=== PATIENT | female | born 1990 ===

== ENCOUNTER 2020-12-16 22:35 | Emergency (ER) | payer SELFPAY ==
[~2020-12-16] VITALS: Ht 154.9 cm; Wt 65.9 kg
[2020-12-16 22:50] VITALS: BP 120/69; Ht 154.9 cm; Wt 65.9 kg
[2020-12-16] MEDS ORDERED: PRENAVITE1 TAB PO (22:51)
[2020-12-16 23:31] LABS: BILIRUBIN NEGATIVE (NEGATIVE); KETONE MODERATE mg/dL (NEGATIVE); NITRITE NEGATIVE (NEGATIVE); UROBILINOGEN NORMAL mg/dL (< 2)
[2020-12-16 23:33] LABS: HEMATOCRIT 33.2 % (36.0-48.0); HEMOGLOBIN 11.6 g/dL (12-16); LYMPHOCYTES 23.4 % (15-50); MCHC 34.9 g/dL (31.0-37.0); MCV 91.5 fL (80.0-100.0); MEAN PLATELET VOLUME 8.8 fL (7.4-10.4); NEUTROPHILS 62.7 % (40-80); PLATELET COUNT 222 10x3/uL (130-400); RBC 3.63 10x6/uL (4.00-5.40); RDW 12.2 % (11.5-14.5); WBC 5.2 10x3/uL (4.8-10.8)
[2020-12-16 23:48] LABS: CALC OSMOLALITY 270 mosm/kg (275-300); CARBON DIOXIDE 25.5 mmol/L (21.0-32.0); CHLORIDE - SERUM 102 mmol/L (98-107); CREATININE - SERUM 0.6 mg/dL (0.6-1.3); GLUCOSE 87 mg/dL (74-106); POTASSIUM - SERUM 3.6 mmol/L (3.5-5.1); SODIUM 137 mmol/L (136-145); UREA NITROGEN 7 mg/dL (7-18); eGFR NON AFRICAN AMERICAN > 90 mL/min (90-120)
[2020-12-16 23:54] LABS: ALBUMIN 3.1 g/dL (3.4-5.0); ALKALINE PHOSPHATASE 54 U/L (30-120); ALT (SGPT) 18 U/L (10-68); PROTEIN - SERUM 6.7 g/dL (6.4-8.2)
--- NOTE | 2020-12-16 23:56 | NUR ---
DR BRANDT NOTIFIED AND REVIEWED PT BEHAVIOR AND ASSESSMENT RESULTS. PT IS A ;OW RISK PER DR BRANDT. DR BRANDT STATED TO GIVE RESOURCES TO PT AT TIME OF DISCHARGE. NO FURTHER ORDERS AT THIS TIME. RESOURCES REVIEWED WITH PT AND SHE VERBALIZED UNDERSTANDING.
[2020-12-17] MEDS ORDERED: AUGMENTIN 875-11 TAB PO (00:03)
[2020-12-17] MEDS ORDERED: FLUTICASONE PRO16 GM NASAL (00:03)
== END 2020-12-17 00:25 | disposition home or self-care (01) ==
LOC: D.ER 22:35
PROVIDERS: Family Medicine
DX: O26.892 Other specified pregnancy related conditions, second trimester (principal); J01.90 Acute sinusitis, unspecified; Z3A.18 18 weeks gestation of pregnancy